=== PATIENT | male | born 1995 | race Caucasian/White ===

== ENCOUNTER 2020-10-25 20:32 | Emergency (ER) | payer OTHER, SELFPAY ==
[2020-10-25 20:35] VITALS: BP 115/83; PULSE 67; RESP 18; TEMP 36.1; O2SAT 100; BMI 21.7
[2020-10-25 20:37] VITALS: BP 125/90; PULSE 88; RESP 15; O2SAT 98
[2020-10-25] MEDS: Lidocaine 1% (20 ml mdv) 20 ML Vial INFILT (20:50)
[2020-10-25] MEDS: Morphine 4 MG/ML Syringe IV ×2 (20:51→23:20)
[2020-10-25] MEDS: Diphth,Pertuss(Acell),Tet Vac 0.5 ML Vial IM (20:51)
--- NOTE | 2020-10-25 20:56 | ED.RN ---
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 this rn also spoke with ev from [facility] and informed her of this.
[2020-10-25 20:58] LABS: Absolute Lymphocyte Count 3.45 X10^3/uL (0.83-4.51); Absolute Neutrophil Count 3.2 X10^3/uL (2.0-7.7); Basophil# 0.05 X10^3/uL; Basophil% 0.7 % (0-1); Eosinophils% 1.3 % (0-5); Hematocrit 42.4 % (40-54); Hemoglobin 14.1 g/dL (13.0-16.5); Lymphocyte # 3.45 X10^3/ul (4.0); Lymphocyte % 46.6 % (19-41); Mean Corp Hgb Conc 33.3 g/dL (32-36); Mean Corpuscular Hgb 29.4 pg (27.0-32.0); Mean Corpuscular Volume 88.5 fL (80-94); Mean Platelet Vol. 9.5 fl (6.2-12.0); Monocyte# 0.64 X10^3/uL; Monocyte% 8.6 % (0-10); NRBC Flagged by Analyzer 0 % (0-5); Neutrophil # 3.15 X10^3/uL (2.7-7.7); Neutrophil % 42.5 % (47-70); Platelet Count 285 K/mm3 (150-450); RBC Distribution Width CV 12.5 % (11.6-14.6); RBC Distribution Width SD 40.5 fl (35.1-43.9); Red Blood Count 4.79 M/mm3 (4.6-6.2); White Blood Count 7.4 K/mm3 (4.4-11.0)
--- NOTE | 2020-10-25 21:10 | RAD_ITS ---
INDICATION: Injury/Pain EXAMINATION/TECHNIQUE: X-RAY - LEFT HAND XR Fingers Min 2 Views COMPARISON: None. FINDINGS: Partial amputation of the third digit including part of the distal tuft of the distal phalanx. No blastic or lytic lesions. No degenerative changes are seen. The soft tissues are unremarkable. RAD/Finger(s) Min 2 Views IMPRESSION: Partial amputation of the third digit including part of the distal tuft of the distal phalanx. Electronically Signed: Jamel Vides MD at 22:04 EDT Tel , Service support ,
[2020-10-25 21:17] LABS: ALB/GLOB Ratio 1.2 RATIO (0.9-2.4); AST(SGOT) 15 U/L (15-37); Alanine Aminotransfer ALT/SGPT 32 U/L (16-61); Albumin, Serum 4.1 g/dL (3.2-5.0); Alkaline Phosphatase 62 U/L (45-117); Anion Gap 7 (5-15); BUN 17 mg/dL (7-18); Calcium,Total 8.7 mg/dL (8.5-10.1); Chloride 107 mmol/L (98-107); Creatinine, Serum 1.06 mg/dL (0.70-1.30); EST Glomerular Filtration Rate 91 mL/min (>60); Est Glom Filt Rate - Afr Amer 110 mL/min (>60); Estimated Creatinine Clearance 113.76 ml/min; Globulin 3.3 g/dL (2.2-4.2); Glucose 87 mg/dL (74-106); Potassium 3.4 mmol/L (3.5-5.1); Protein, Total 7.4 g/dL (6.4-8.2); Sodium Level 138 mmol/L (136-145)
[2020-10-25] MEDS: Cefazolin 1 GM/50 ML BAG IV (21:23)
[2020-10-25 21:58] VITALS: BP 116/48; RESP 16
[2020-10-25 22:05] VITALS: PULSE 71; RESP 16; O2SAT 97
--- NOTE | 2020-10-26 00:06 | ED.DCSUM_ITS ---
- ER Visit Summary Date of Service: 10/26/20 Chief Complaint: Fingertip amputation History of Present Illness: The patient is a 25 M who presents with amputation of the fingertip of his left third finger. Patient states he was at work and was working on a machine when he got his finger caught in the machine. Patient states that the tip of the finger was cut off. Patient describes the pain as sharp and aching. Patient denies any paresthesias or weakness. Patient is unsure of his last tetanus. Patient denies any other injuries. Physical Examination: Vital signs are stable. Patient is afebrile. Patient is in no acute distress. Musculoskeletal exam reveals amputation of the distal two thirds of the distal phalanx soft tissue. The bone of the distal phalanx was exposed. There is no active bleeding. There are no foreign bodies. Strength is 5/5 in flexion and extension of the DIP, PIP, and MP joints of the left third finger. There are no sensory deficits. Test Results: X-rays of the left third finger were obtained. There are 3 views. On my interpretation, there is distal tuft fracture and amputation of the distal phalanx. There is also soft tissue loss of the distal phalanx. Radiologist also interpreted the x-ray and agrees. Emergency Department Course and Treatment: Patient was given a tetanus booster. Patient was given a dose of morphine. Patient was given a dose of Ancef here. The left third finger was anesthetized with 1% plain lidocaine via digital block. The wound was cleaned and irrigated with copious amounts of normal saline. The bone of the distal phalanx was excised using a rongeur. The remaining portion of the nail plate was also removed. The soft tissue of the distal phalanx was closed with 5 simple #4-0 Vicryl sutures under sterile technique. The remaining bone was covered. Laceration measured approximately 2.5 cm after it was closed. Xeroform gauze dressing was applied. Tube gauze dressing was applied. Patient was given prescriptions for Keflex and [place]. Patient was instructed to follow-up with [facility] hand surgeon. Patient was instructed to return if worse in any way. Patient understood and was agreeable with plan. All questions were answered. Disposition: Discharge home Impression: 1. Fingertip amputation distal phalanx left third finger This note was generated with [employer] software. It may contain incorrect words, spelling, and punctuation that were not noted in review of the chart prior to signing ED Disposition - Plan for ED Patient: Disposition: Home or Assisted Living Diagnosis: Traumatic amputation of fingertip Instructions: ED Finger Tip Amputation Open ... Prescriptions: Cephalexin [Keflex] 500 mg PO Q6 #40 capsule Transmission Status: Received by [facility] Hydrocodone Bitart/Apap 5-325 [[place] 5MG-325MG] 1 tablet PO Q6H PRN PRN 3 Days #10 tab PRN Reason: Pain Transmission Status: Received by [id number] Referrals: [facility] [Outside] - 3-5 Days
--- NOTE | 2020-10-26 00:09 | ED.RN ---
Called operations intelligence superintendent, Cristhian Medrano, at [facility] regarding amputation. Cristhian will tell appropriate persons about amputation. patient aware.
[2020-10-26] MEDS: HYDROcodone Bitartrate/Apap 5/325 Tablet PO (00:30)
[2020-10-26 00:31] VITALS: BP 122/75; PULSE 66; RESP 16; O2SAT 98
== END 2020-10-26 00:47 | disposition home or self-care (01) ==
PROVIDERS: Emergency Provider Emergency Medicine
DX: S68.623A Partial traumatic transphalangeal amputation of left middle finger, initial encounter (principal); Z23 Encounter for immunization; Z87.891 Personal history of nicotine dependence; W31.9XXA Contact with unspecified machinery, initial encounter; Y93.89 Activity, other specified; Y92.89 Other specified places as the place of occurrence of the external cause; Y99.0 Civilian activity done for income or pay
CPT/HCPCS: 12001; 73140; 80053; 85025; 90715; 96365; 96375; 96376; 99284; J7050; A4216

== ENCOUNTER 2021-12-17 18:04 | Emergency (ER) | payer BC, SELFPAY ==
[2021-12-17 18:04] VITALS: BP 111/61; PULSE 68; RESP 18; TEMP 36.6; O2SAT 98; BMI 21.9
--- NOTE | 2021-12-17 18:27 | EX.ED.DYSGE1 ---
HPI History of Present Illness Chief Complaint: Headache Narrative Narrative: Patient presents with a gradual onset headache that started about a week ago, it waxes and wanes, the pain is on the right side, it is sharp and stabbing it is associated with photophobia and some phonophobia. He does not have a history of migraine or any kind of headaches. He has no fever or chills. He is denying any vision changes. He has no recent weight loss. No trauma. No neck pain or stiffness. No weakness or paresthesias or confusion. Again this headache was gradual onset and not sudden. PFSH PFSH Medical History no medical history Home Medications cephalexin 500 mg PO Q6 #40 capsule 10/26/20 [Rx Last Taken Unknown] Allergy/AdvReac Type Severity Reaction Status Date / Time No Known Allergies Allergy Verified 12/17/21 18:05 Social History Smoking Status: Current some day smoker ROS ROS ED ROS Narrative Past medical history: None Medications: Reviewed Social history: Noncontributory Review of systems: All systems negative except as indicated General: No fever Eyes: No visual changes ENT: No upper airway congestion, normal voice Neck: No neck pain Cardiovascular: No chest pain Respiratory: No shortness of breath or cough Gastrointestinal: No abdominal pain, nausea vomiting or diarrhea Genitourinary: No dysuria Musculoskeletal: Denies myalgias no difficulty with ambulation Skin: No rash Neurological: Headache as in HPI. No memory loss, confusion or any focal weakness Psych: No recent behavioral changes Hematologic: No easy bleeding or easy bruising EXAM Physical Exam Narrative Exam Narrative: Physical exam General: Well nourished, Well developed, No Acute Distress Head: Patient appears somewhat uncomfortable Eyes: Conjunctiva not pale ENT: Moist mucous membranes Neck: Supple, Nontender, No lymphadenopathy Cardiovascular: Regular rate, Regular rhythm Respiratory: No distress, CTA bilaterally Abdomen: Soft, Nontender, Nondistended Back: Nontender, Normal Inspection. Negative for: CVA tenderness Extremities: Nontender, No edema Skin: Normal color, No rash Neurological: Alert, Normal Strength, Normal Sensation Psychological: Normal affect Const Vital Signs: 12/17/21 18:04 Temperature 97.9 F Temperature Source Temporal Pulse Rate 68 Respiratory Rate 18 Blood Pressure 111/61 Blood Pressure Mean 77 Pulse Ox 98 Oxygen Delivery Method Room Air MDM MDM MDM Narrative Medical decision making narrative: Patient has a gradual onset headache with a normal neurological exam it is his first headache thus I believe a CAT scan is warranted however it is a gradual onset and a normal neurological exam therefore I do not believe I need to do a aneurysm work-up. He improved with IV fluids, Reglan, Benadryl, Toradol. His CT was unremarkable I will discharge him in stable condition. Radiography Diagnostic Testing: Clinical Impression(s) from Imaging Studies Brain CT 12/17/21 18:52 IMPRESSION: No acute intracranial pathology. Chronic paranasal sinus disease. Electronically Signed: Shawn Hodgson MD at 19:20 EDT , Discharge Plan Triage Chief Complaint: Headache ED Provider: Cristobal Mart Dx/Rx/DC Orders Clinical Impression: Headache, Migraine Instructions: ED, Migraine (Classical) Prescriptions: No Action cephalexin 500 MG capsule 500 mg PO Q6 Qty: 40 RF: 0 Primary Care Provider: Care Physician,No Primary Referrals: Mariel Henson DO [STAFF PHYSICIAN] - 2 Days Care Physician,No Primary [Primary Care Provider] - Disposition Disposition: Home, Self Care
[2021-12-17] MEDS: Metoclopramide 10 MG/2 ML Vial IV (18:41)
[2021-12-17] MEDS: DiphenhydrAMINE 50 MG/ML Syringe 25 MG IV (18:41)
[2021-12-17] MEDS: Ketorolac 15 MG/ML Vial IV (18:41)
[2021-12-17] MEDS: 0.9% Normal Saline 1,000 ML 999 ML IV (18:41)
--- NOTE | 2021-12-17 18:50 | CM.ED ---
Social Work Note Reason for Referral: No PCP SW reviewed chart, pt has no PCP listed. SW in to speak with pt. Pt confirms he has no PCP. SW provided pt with PCP list. Erica Santoro STEREO PLOTTER OPERATOR, RIP TAILER
--- NOTE | 2021-12-17 18:52 | CT_ITS ---
EXAM: CT HEAD WITHOUT INTRAVENOUS CONTRAST CLINICAL INDICATION: headache TECHNIQUE: Multiple axial images were obtained of the head without intravenous contrast. CTDIvol = ( 44.99 ) mGy, DLP = ( 846.73 ) mGycm This CT exam was performed using one or more of the following dose reduction techniques: automated exposure control, adjustment of the mA and/or kV according to patient size, and/or use of iterative reconstruction technique. This report was created using [employer] report generation technology. COMPARISON: None. FINDINGS: BRAIN AND EXTRA-AXIAL SPACES: Unremarkable. No intra- or extra-axial hemorrhage. No evidence of acute infarct. No intracranial mass or mass effect. There is preservation of the cisneros/white matter interface. Posterior fossa structures are unremarkable. Ventricles are appropriate for age. No hydrocephalus. Basal cisterns are patent. BONES/JOINTS: Unremarkable. No discrete lytic or blastic abnormalities. SINUSES: Mucous retention cyst in the right and the left maxillary sinus. No air-fluid levels. MASTOID AIR CELLS: Mastoid air cells and middle ears are clear. ORBITS: Visualized globes, extraocular muscles, optic nerves and retrobulbar fat appear unremarkable. CT/Brain/Head without Contrast IMPRESSION: No acute intracranial pathology. Chronic paranasal sinus disease. Electronically Signed: Shawn Hodgson MD at 19:20 EDT ,
[2021-12-17 19:38] VITALS: BP 120/61; PULSE 54; RESP 16; O2SAT 100
[2021-12-17] MEDS: dexAMETHasone 10 MG/ML Vial IV (19:42)
== END 2021-12-17 19:52 | disposition home or self-care (01) ==
PROVIDERS: Emergency Provider Emergency Medicine; Visit Provider Emergency Medicine
DX: G43.909 Migraine, unspecified, not intractable, without status migrainosus (principal); F17.200 Nicotine dependence, unspecified, uncomplicated
CPT/HCPCS: 70450; 96361; 96374; 96375; 99282

== ENCOUNTER 2022-03-11 21:04 | Emergency (ER) | payer BC, SELFPAY ==
[2022-03-11 21:04] VITALS: BP 133/91; PULSE 60; RESP 14; TEMP 36.1; O2SAT 93; BMI 20.1
--- NOTE | 2022-03-11 21:14 | EX.ED.DYSGE1 ---
HPI History of Present Illness Chief Complaint: Wound Informant: patient Narrative Narrative: On Wednesday and Wednesday, patient gave himself 3 tattoos on the thighs. 1 portion of 1 tattoo is getting weepy. It is draining some purulent material. It is more sensitive and more red. He has had many tattoos. 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 He cleaned the area well. He has never had reactions to dyes. It is just 1 portion that is bothering him. He has no fevers chills sweats. No history of MRSA. He is on no medicines. No allergies. Nothing really makes this better or worse. It is slightly sensitive to touch though. PFSH PFSH Home Medications cephalexin 500 mg capsule 500 mg PO Q6 #40 CAPSULES 10/26/20 [Rx Last Taken Unknown] cephalexin 500 mg capsule 500 mg PO Q6 #40 caps 03/11/22 [Rx Last Taken Unknown] Allergy/AdvReac Type Severity Reaction Status Date / Time No Known Allergies Allergy Verified 03/11/22 21:04 Social History Smoking Status: Current some day smoker tobacco type: cigarettes ROS ROS ED Constitutional Constitutional ED: Denies chills, fever(s), subjective or sweats Cardiovascular Cardiovascular: Denies chest pain, palpitations or racing heartbeat Gastrointestinal Gastrointestinal: Denies nausea or vomiting Musculoskeletal Musculoskeletal: Denies arthralgias or myalgias Integumentary Reports rash and other Details: See history of present illness. ; Denies abscess Neurologic Neurologic: Denies weakness Endocrine Endocrinology: Denies polydipsia or polyuria Hematologic/Lymphatic Hematologic/Lymphatic: Denies lymphadenopathy EXAM Physical Exam Const Vital Signs: 03/11/22 21:04 Temperature 97 F L Temperature Source Temporal Pulse Rate 60 Respiratory Rate 14 Blood Pressure 133/91 H Blood Pressure Mean 105 Pulse Ox 93 Oxygen Delivery Method Room Air Positive well nourished and well developed General Appearance ED: well developed and NAD HEENT Reports moist mucous membranes Resp normal respiratory effort Cardio regular rate, regular rhythm and no murmurs Extremity Extremity Narrative: Patient has multiple tattoos throughout his body. He has a new 1 on the right distal thigh and 2 new ones in the left thigh. 1 portion of one tattoo is weeping more red a little bit inflamed looking compared to the other areas. No abscess formation. No proximal lymphangitic streaking at this point. Neuro Sensorium / Orientation: alert Skin Skin Narrative: See above under extremity exam. MDM MDM MDM Narrative Medical decision making narrative: It does look like this patient may be getting early infection of a tattoo. He is about a week after the original tattoo. This is long enough to actually get infection. The others are healing well in all areas except this chronic spot. He will keep the area clean and scrubbed. I will start him on antibiotics. I explained that we will cover strep and staph. If he is not getting better he may need further antibiotics for MRSA. We discussed reasons to return and local care. Discharge Plan Triage Chief Complaint: Wound ED Provider: Mynor Ellington Dx/Rx/DC Orders Clinical Impression: Tattoo reaction, Cellulitis of left thigh Instructions: ED Cellulitis Prescriptions: New cephalexin [cephalexin] 500 mg capsule 500 mg PO Q6 Qty: 40 0RF No Action cephalexin 500 MG capsule 500 mg PO Q6 Qty: 40 0RF Primary Care Provider: Care Physician,No Primary Referrals: Dick Salinas MD [Med Staff - Associate Field Service Engineer] - 3-5 Days if not improving Care Physician,No Primary [Primary Care Provider] - Disposition Disposition: Home, Self Care
[2022-03-11] MEDS: Cephalexin 250 MG Capsule 500 MG PO (21:28)
== END 2022-03-11 21:29 | disposition home or self-care (01) ==
PROVIDERS: Emergency Provider Emergency Medicine; Visit Provider Emergency Medicine
DX: L81.8 Other specified disorders of pigmentation (principal); L03.116 Cellulitis of left lower limb; F17.210 Nicotine dependence, cigarettes, uncomplicated
CPT/HCPCS: 99282

== ENCOUNTER 2023-05-19 21:52 | Emergency (ER) | payer SELFPAY ==
[2023-05-19 21:52] VITALS: BP 136/68; PULSE 65; RESP 16; TEMP 36.8; O2SAT 100; BMI 19.9
--- NOTE | 2023-05-19 22:48 | ED.VIS.DENTA ---
HPI History of Present Illness Chief Complaint: Dental Detail of Chief Complaint: Right upper dental pain Informant: patient Narrative Narrative: Patient presents to the emergency department with complaint of dental pain that started 2 hours ago. Describes the pain as right upper wisdom tooth. He denies any injury to it. He has had no fevers. Patient has not been seeing a dentist because he does not have insurance. PFSH PFSH Home Medications cephalexin 500 mg capsule 500 mg PO Q6 #40 CAPSULES 10/26/20 [Rx Last Taken Unknown] cephalexin 500 mg capsule 500 mg PO Q6 #40 caps 03/11/22 [Rx Last Taken Unknown] clindamycin HCl 300 mg capsule (Cleocin HCl) 300 mg PO Q6H #40 CAPSULES 05/19/23 [Rx Last Taken Unknown] hydrocodone-acetaminophen 5-325mg 5mg-325mg 1 tab PO Q4H PRN PRN Pain 2 days #10 TABLETS 05/19/23 [Rx Last Taken Unknown] Allergy/AdvReac Type Severity Reaction Status Date / Time No Known Allergies Allergy Verified 05/19/23 21:54 Social History Smoking Status: Current some day smoker tobacco type: cigarettes ROS ROS ED Review of Systems ROS Unobtainable: other Constitutional Constitutional ED: Reports lethargy; Denies chills, fever(s), sweats or weight loss Eyes Eyes: Denies blurry vision, change in vision or diplopia ENT ENT ED: Reports other Details: Right upper dental pain ; Denies rhinorrhea or sore throat Cardiovascular Cardiovascular: Denies chest pain, orthopnea or racing heartbeat Respiratory/Chest Respiratory/Chest: Denies cough, dyspnea, dyspnea on exertion, orthopnea or sputum Gastrointestinal Gastrointestinal: Denies abdominal pain, diarrhea, nausea or vomiting Genitourinary Genitourinary ED: Denies dysuria, hematuria or urinary frequency Musculoskeletal Musculoskeletal: Denies arthralgias, back pain, myalgias or neck pain Integumentary Denies abscess, Abrasions or rash Neurologic Neurologic: Denies headache(s) or weakness Psychiatric Psychiatric: Denies anxiety, depression or suicidal thoughts Endocrine Endocrinology: Denies polydipsia, polyphagia or polyuria Hematologic/Lymphatic Hematologic/Lymphatic: Denies easy bleeding, easy bruising or lymphadenopathy Allergic/Immunologic Allergic/Immunologic ED: Denies mouth swelling, tongue swelling or urticaria EXAM Physical Exam Const Vital Signs: 05/19/23 21:52 Temperature 98.3 F Temperature Source Temporal Pulse Rate 65 Respiratory Rate 16 Blood Pressure 136/68 H Blood Pressure Mean 90 Pulse Ox 100 Oxygen Delivery Method Room Air Positive well nourished and well developed General Appearance ED: well developed and NAD HEENT Reports TM's clear and moist mucous membranes HEENT Narrative: Dentition-patient has a broken and carried right upper molar tooth #1 it is tender to palpation. No gingival erythema or abscess noted. No tenderness over the TMJ joint and there is no clicking or popping on range of motion. normocephalic and atraumatic; Negative for trauma or tenderness Tympanic Membrane ED: Yes TM's clear Eyes PERRL and EOMs intact bilaterally General Eye ED: Negative for pale conjunctiva or scleral icterus Neck no lymphadenopathy, supple and no JVD General: Negative for tenderness Chest Wall inspection of chest normal and palpation of chest normal Chest: Negative for tenderness Resp normal respiratory effort and clear to auscultation bilaterally Effort and Inspection: Negative for respiratory distress or pain with movement Auscultation: Negative for rhonchi, wheezes or diminished lung sounds Cardio regular rate, regular rhythm, S1 normal heart sound, S2 normal heart sound and no murmurs Peripheral Pulses: pulses 2+ throughout GI normal to inspection, nondistended, normoactive bowel sounds, soft to palpation, non-tender, non-distended and no masses Back/Spine no CVA tenderness and no thoracic nor lumbar tenderness Extremity normal to inspection General Extremety ED: Negative for edema General Extremity: Negative for edema Neuro oriented x3, CN's II-XII intact bilaterally, no sensory deficits noted and gait normal Sensorium / Orientation: awake, alert, oriented to person, oriented to place and oriented to time Motor Exam: strength 5/5 throughout and strength abnormal Psych mental status grossly normal Skin no rashes or lesions noted and no wounds MDM MDM MDM Narrative Medical decision making narrative: Patient presents with dental pain and has poor dentition. Will start on clindamycin and give [place] for pain. Will refer to dentist for follow-up. Discharge Plan Triage Chief Complaint: Dental ED Provider: Brandon Garcia Dx/Rx/DC Orders Clinical Impression: Pain, dental Instructions: ED Dental Pain Prescriptions: New clindamycin HCl [Cleocin HCl] 300 mg capsule 300 mg PO Q6H Qty: 40 0RF hydrocodone-acetaminophen [hydrocodone-acetaminophen] 5-325 mg tablet 1 tab PO Q4H PRN PRN (Reason: Pain) 2 Days Qty: 10 0RF No Action cephalexin 500 MG capsule 500 mg PO Q6 Qty: 40 0RF cephalexin [cephalexin] 500 mg capsule 500 mg PO Q6 Qty: 40 0RF Primary Care Provider: Care Physician,No Primary Referrals: Care Physician,No Primary [Primary Care Provider] - Activity Restrictions/Additional Instructions: See a dentist at the earliest possible time for definitive care. Disposition Disposition: Home, Self Care Discharge Date/Time: 05/19/23 23:10
[2023-05-19] MEDS: Clindamycin HCl 150 MG Capsule 300 MG PO (23:05)
[2023-05-19] MEDS: HYDROcodone Bitartrate/Apap 5/325 Tablet PO (23:05)
== END 2023-05-19 23:10 | disposition home or self-care (01) ==
LOC: ED 23:09
PROVIDERS: Emergency Provider Emergency Medicine; Visit Provider Emergency Medicine
DX: K08.89 Other specified disorders of teeth and supporting structures (principal); F17.210 Nicotine dependence, cigarettes, uncomplicated
CPT/HCPCS: 99283